=== PATIENT | female | born 1985 | race Two or more races ===

== ENCOUNTER 2017-04-27 08:00 | Outpatient (CLI) | payer OTHER ==
[2017-04-29 11:16] LABS: TEST RESULT REPORT (())
== END 2017-04-27 08:01 | disposition home or self-care (01) ==
LOC: LAB.WCP 08:00
PROVIDERS: ATTEND Physician Assistant Medical
DX: K12.1 Other forms of stomatitis (principal)
CPT/HCPCS: 81599; 87255

== ENCOUNTER 2017-09-04 08:00 | Outpatient (CLI) | payer OTHER | END 2017-09-04 08:01 | disposition home or self-care (01) | LOC: LAB.R 08:00 | PROVIDERS: ATTEND Physician Assistant Medical | DX: J02.9 Acute pharyngitis, unspecified (principal) | CPT/HCPCS: 87070 ==

== ENCOUNTER 2018-01-28 11:29 | Outpatient (CLI) | payer OTHER ==
[2018-01-28 19:18] LABS: BASOPHILS % (AUTO) 0.3 %; EOSINOPHILS # (AUTO) 0.2 10^3/uL (0.0-0.7); EOSINOPHILS % (AUTO) 2.7 %; HGB - HEMOGLOBIN 12.4 g/dL (12.0-16.0); LYMPHOCYTES % (AUTO) 37.4 %; MEAN CORPUSCULAR HEMOGLOBIN 27.5 pg (27.0-31.0); MEAN CORPUSCULAR HGB CONC 32.6 g/dL (32.0-36.0); MEAN CORPUSCULAR VOLUME 84.2 fL (81.0-99.0); MEAN PLATELET VOLUME 9.4 fL (7.9-10.8); MONOCYTES # (AUTO) 0.6 10^3/uL (0.0-1.0); MONOCYTES % (AUTO) 7.6 %; NEUTROPHILS # (AUTO) 4.2 10^3/uL (1.5-6.6); PLT - PLATELET COUNT 260 10^3/uL (130-450); RED BLOOD COUNT 4.53 10^6/uL (4.20-5.40); RED CELL DISTRIBUTION WIDTH 14.9 % (12.0-15.0)
[2018-01-28 19:38] LABS: HB2 TOTAL 13.4 g/dL; HEMOGLOBIN A1C 0.49 g/dL; HEMOGLOBIN A1C % 5.5 % (4.6-6.2)
[2018-01-28 19:43] LABS: ALBUMIN 3.8 g/dL (3.2-5.5); ALKALINE PHOSPHATASE 70 IU/L (42-121); ALT ALANINE AMINOTRANSFERASE 35 IU/L (10-60); AST ASPARTATE AMINOTRANSFERASE 25 IU/L (10-42); BILIRUBIN,TOTAL 0.4 mg/dL (0.2-1.0); BUN - BLOOD UREA NITROGEN 7 mg/dL (6-20); CALCIUM 8.9 mg/dL (8.5-10.3); CARBON DIOXIDE - CO2 25 mmol/L (21-32); CHLORIDE 103 mmol/L (101-111); CHOL/HDL RATIO 3.6 (<4.4); CHOLESTEROL 169 mg/dL; CREATININE 0.6 mg/dL (0.4-1.0); GFR - MDRD 116 (>89); GLUCOSE 81 mg/dL (70-100); HDL CHOLESTEROL 47 mg/dL; LDL CHOLESTEROL,CALCULATED 109 mg/dL; LDL/HDL RATIO 2.3 (<4.4); SODIUM 135 mmol/L (135-145); TOTAL PROTEIN 7.7 g/dL (6.7-8.2); VLDL CHOLESTEROL 13 mg/dL
== END 2018-01-28 11:30 ==
LOC: LAB.WCP 11:29
PROVIDERS: ATTEND Physician Assistant Medical
DX: Z00.00 Encounter for general adult medical examination without abnormal findings (principal); O24.419 Gestational diabetes mellitus in pregnancy, unspecified control
CPT/HCPCS: 36415; 80053; 80061; 83036; 83721; 84443; 85025

== ENCOUNTER 2019-03-17 | Outpatient (CLI) | payer OTHER | END 2019-03-17 23:59 | disposition home or self-care (01) | DX: R53.83 Other fatigue (principal) ==

== ENCOUNTER 2019-05-26 10:15 | Outpatient (CLI) | payer OTHER ==
[2019-05-26 11:28] VITALS: BP 96/60
--- NOTE | 2019-05-26 11:28 | SLEEP CARE CONSULTATION ---
Information from patient questionnaire entered by Tigist Sanders. I have reviewed and concur with the information entered by Tigist Sanders. This document represents the service I personally performed and the decisions made by me, Sara Menendez RN, MSN, [employer]. History of Present Illness Reason for Visit: New patient Chief Complaint: reports: Excessive daytime sleepiness, Fatigue Duration of Symptoms: 1 year Usual bedtime: 9 pm Time it takes to fall asleep: 30 minutes Snores at night: Yes Observed to quit breathing while asleep: No Sleeps alone due to snoring: No Number of times waking at night: 4 Reasons for waking at night: reports: Snoring, Bathroom, Other (switching positions) Toss, Turn, or Twitch while sleeping: Yes Recalls having dreams: Yes Usually gets out of bed at: 6:30 am Feels refreshed in the morning: No Morning headache: No Sleepy or fatigued during the day: Yes Ever fallen asleep while driving: Yes (no accidents - she pulls over when eye lids heavy and rests when notes ) Takes day naps: Yes (try to on weekends for about 3-4 hours and sometimes feels more rested. 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 Patient is and lives in [place]. Have you smoked in the past 12 months: No Alcohol use: Yes Alcohol amount and frequency: 1 glass every couple of months Caffeine use: Yes Caffeine amount and frequency: 3-5 days a week - 1 12 ounce soda Family History Family history of sleep disordered breathing: No Allergies and Home Medications Known drug allergies: No Home medication list reviewed: Yes Allergy and home medication list: Lexapro 20mg daily Stacy daily Vitamin D 2000 iu daily. Review of Systems Weight gain over past 5 years: 20 Psychiatric: reports: anxiety, depression ( feels it is controlled. No thoughts of hurting self or others. ) Ear/Nose/Throat: reports: nasal congestion (with seasonal allergies), sinus problems, wisdom teeth removed. denies: nose bleeds, dry mouth/throat, hoarseness, injury to nose, tonsillectomy Musculoskeletal: reports: back pain (intermittent with resolution of symptoms with physical therapy) Immunologic: reports: other (adhesive (ex - from band-aid)) Physical Exam Blood Pressure: 96/60 Heart Rate: 70 O2 Saturation: 97 Height: 5 ft 5.25 in Weight: 226 lb 9.6 oz Body Mass Index: 37.4 BMI Classification: Obesity Class 2 Neck circumference: 15.5 HEENT: No craniofacial malformation Nostrils: partially obstructed Turbinates: swollen Septum: midline Mouth and throat: narrow oropharynx Soft palate: long Hard palate: Torus palatinus Uvula: normal Uvula visualization: 25% Mallampati Class III Tongue: enlarged in size with teeth verdugo on lateral edges Tonsils: 1+ Chin and jaw: normal size and position Neck: normal w/o lymphadenopathy or thyromegaly Heart: regular rate and rhythm Lungs: clear bilaterally Abdomen: soft, non-tender Extremities: no edema or clubbing Impression and Plan 1. Suspected Obstructive Sleep Apnea-Hypopnea Syndrome, as suggested by a history of loud and irregular snoring, frequent awakening during the night, unrefreshed sleep, fatigue and excessive daytime sleepiness. She also grinds her teeth in her sleep and does not wear a guard. Narrow oropharynx and obesity are common predisposing factors for obstructive sleep apnea-hypopnea syndrome. I recommend proceeding to polysomnography to confirm the diagnosis and to assess severity. If the patient has significant sleep disordered breathing, a manual CPAP titration study will also be performed to find the optimal treatment pressure. I informed the patient of what the sleep studies involve and after some discussion, obtained agreement to proceed. The pathophysiology of obstructive sleep apnea-hypopnea syndrome was discussed with the patient and health risks of cardiovascular and cerebrovascular disease if not treated. [facility] brochure for obstructive sleep apnea-hypopnea syndrome given and reviewed. Risks of drowsy driving discussed in detail and patient advised to avoid long distance driving and to drum puller at the first sign of drowsiness. Patient agreed to plan. [facility] drowsy driving brochure given. * Schedule polysomnography +- manual CPAP titration study * Avoid long distance driving or driving when feeling sleepy. * Avoid alcohol, sedative and muscle relaxant around bedtime. * Attempt to lose weight. * Review instructions provided by trained office staff on how to prepare for the sleep study. * Return for follow-up after sleep study completed. I spent 100% of this 35 minute visit face to face with the patient with greater than 50% of this was spent time counseling the patient and coordination of care.
== END 2019-05-26 10:16 | disposition home or self-care (01) ==
LOC: SC 10:15
PROVIDERS: ATTEND Nurse Practitioner Family
DX: G47.10 Hypersomnia, unspecified (principal); R06.83 Snoring; G47.8 Other sleep disorders; R53.83 Other fatigue; E66.9 Obesity, unspecified; Z68.37 Body mass index [BMI] 37.0-37.9, adult
CPT/HCPCS: 99203; 99212

== ENCOUNTER 2019-06-09 19:07 | Outpatient (CLI) | payer OTHER | END 2019-06-09 19:08 | disposition home or self-care (01) | LOC: SC 19:07 | PROVIDERS: ATTEND Internal Medicine Pulmonary Disease | DX: G47.10 Hypersomnia, unspecified (principal); G47.8 Other sleep disorders; E66.9 Obesity, unspecified; Z68.37 Body mass index [BMI] 37.0-37.9, adult | CPT/HCPCS: 95810 ==

== ENCOUNTER 2019-07-08 16:10 | Outpatient (CLI) | payer OTHER ==
[2019-07-08 17:55] VITALS: BP 112/74
--- NOTE | 2019-07-08 17:55 | SLEEP CARE CONSULTATION ---
Information from patient questionnaire entered by Tigist Sanders. I have reviewed and concur with the information entered by Tigist Sanders. This document represents the service I personally performed and the decisions made by me, Sara Menendez RN, MSN, [employer]. History of Present Illness Initial [place] Sleepiness Scale score: 18 Current [place] Sleepiness Scale score: 17 Additional HPI information: KATELYN PICKENS returns for follow up of the recently performed polysomnography and informed of the polysomnography findings. I explained the pathophysiology behind obstructive sleep apnea. Patient does not have sleep apnea and was advised how weight gain could increase the risk of developing sleep apnea in the future. I strongly encouraged the patient to lose weight. Patient has loud snoring. Snoring can be reduced by weight loss. Weight loss is best achieved with diet consult. Patient instructed to contact PCP for referral. Snoring can also be treated with an oral appliance from a dentist. Advised to check insurance coverage. In addition, an ENT evaluation can be do to see if other treatment is indicated. Patient counseled not drink alcohol less than 4 hours before bedtime as it can increase snoring and apnea. Patient was cautioned about risks of drowsy driving until sleepiness symptoms resolve. Sleep Study - Polysomnography Polysomnography findings: The quality of the study is good. The patient had slightly reduced sleep efficiency due to a prolonged awakening in the first half of the night.. The sleep architecture was normal. Respiratory monitoring showed no significant sleep disordered breathing (AHI = 3.0) or hypoxia (donis oxygen saturation of 88% and only 0.1% to the total sleep time was spent with oxygen saturation below 90%). The few respiratory events occurred mainly during REM sleep (supine AHI = 2.2; non-supine = 3.53). Snore was loud in intensity. There was no significant periodic leg movement of sleep. Cardiac rhythm was normal sinus rhythm without significant arrhythmia. No abnormal behavior (parasomnia) observed during the night. Allergies and Home Medications Known drug allergies: No Home medication list reviewed: Yes (no changes) Review of Systems Review of systems same as previous: Yes Physical Exam Blood Pressure: 112/74 Cuff size: long Heart Rate: 91 O2 Saturation: 97 Height: 5 ft 5.25 in Weight: 229 lb 12.8 oz Body Mass Index: 37.9 BMI Classification: Obesity Class 2 Impression and Plan 1. Snoring but no significant sleep disordered breathing. Patient advised that often weight loss will reduce snoring as well as apnea risk. Weight loss is best achieved with a dinkey engine firer consultation to obtain optimal weight loss goals. We looked at the BMI chart and where her BMI is currently. In addition to red ucing snoirng and apnea risk, weight loss will also reduce overall health risks as her BMI is currently 37, class 2 obesity. Weight loss maintenance is best achieved starting with small weight loss goals and tracking of food intake to change dietary habits. There are some Apps available for this. I also stressed importance of staying away from sugary drinks, refined foods and portion control of whole foods. An oral appliance can also be used for snoring. This would require a dental consultation. Patient is advised to check if insurance will cover. Patient cautioned not to use other online appliances as can cause bite issues. A list of accredited dentists in area and one local dentist who makes oral appliances offered and declined. She was informed she should use an oral appliance for bruxism but has not obtained. . An ENT consult can also be helpful to determine if any other treatment is an option. Patient would like to concentrate on weight loss. 2. Fatigue and excessive daytime sleepiness, unknown etiology. Patient states has been present for about a year. No changes noted in lifestyle or weight. She has a regular sleep schedule. Thus she was advised to follow up with PCP for further evaluation such as her depression treatment and other medical conditions. Patient agreed with plan. * Attempt to lose weight * Follow up with PCP for referral to diet consultatio and further evaluation of sleepiness symptoms. * Avoid alcohol consumption near bedtime * The patient is cautioned about driving until sleepiness is completely resolved. * Return as needed. I spent 100% of this 17 minute visit face to face with the patient with greater than 50% of this was spent time counseling the patient and coordination of care.
== END 2019-07-08 16:11 | disposition home or self-care (01) ==
LOC: SC 16:10
PROVIDERS: ATTEND Nurse Practitioner Family
DX: R06.83 Snoring (principal); G47.10 Hypersomnia, unspecified; R53.83 Other fatigue; E66.9 Obesity, unspecified; Z68.37 Body mass index [BMI] 37.0-37.9, adult
CPT/HCPCS: 99212; 99213

== ENCOUNTER 2020-03-12 15:29 | Inpatient (IN) | payer OTHER ==
--- NOTE | 2020-03-12 15:35 | ED Physician Documentation ---
PD HPI ABD PAIN - Stated complaint Stated Complaint: APPENDICITIS - History obtained from History obtained from: Patient - Additional information Additional information: She has had 5 days of abdominal pain, initially periumbilical then radiating to the right lower quadrant associated with nausea. She was seen in outpatient setting and first had lab work which was notable for a white count of 15,000 and subsequently an ultrasound which was nondiagnostic. Today she had an CT consistent with appendicitis.She also had a test done in the outpatient setting which was negative. Review of Systems Ten Systems: 10 systems reviewed and negative Constitutional: reports: Reviewed and negative Throat: reports: Reviewed and negative Cardiac: reports: Reviewed and negative Respiratory: reports: Reviewed and negative PD PAST MEDICAL HISTORY - Past Medical History Past Medical History: No - Past Surgical History Past Surgical History: No - Present Medications Home Medications: Ambulatory Orders Medication Instructions Recorded Confirmed Escitalopram Oxalate [Lexapro] 20 mg PO DAILY 03/12/20 03/12/20 Fexofenadine HCl [Stacy Allergy] 60 mg PO DAILY 03/12/20 03/12/20 - Allergies Allergies/Adverse Reactions: Allergies Allergy/AdvReac Type Severity Reaction Status Date / Time No Known Drug Allergies Allergy Verified 03/12/20 15:39 - Living Situation Living Situation: reports: With spouse/s.o. - Social History Does the pt smoke?: No - Family History Family history: reports: Non contributory PD ED PE NORMAL - Vitals Vital signs reviewed: Yes - General General: Alert and oriented X 3, No acute distress - HEENT HEENT: PERRL, EOMI - Neck Neck: Supple, no meningeal sign, No bony TTP - Cardiac Cardiac: RRR, No murmur - Respiratory Respiratory: No respiratory distress, Clear bilaterally - Abdomen Abdomen: Normal bowel sounds, Soft, Other (Modest right lower quadrant tenderness) - Back Back: No CVA TTP, No spinal TTP - Derm Derm: Normal color, Warm and dry - Extremities Extremities: No edema, No calf tenderness / cord - Neuro Neuro: Alert and oriented X 3, Normal speech Results - Vitals Vitals: Vital Signs - 24 hr 03/12/20 15:35 Heart Rate 92 Respiratory 16 Rate Blood Pressure 141/98 H O2 Saturation 100 Oxygen O2 Source Room air PD MEDICAL DECISION MAKING - ED course ED course: 34-year-old woman presents with known appendicitis, the surgeon, Dr. Canada will come in and see her and requested antibiotics in the interim. Departure - Departure Disposition: ED Transfer to [facility] Clinical Impression: Appendicitis Qualifiers: Appendicitis type: acute appendicitis Acute appendicitis type: with localized peritonitis Appendicitis gangrene presence: without gangrene Appendicitis perforation presence: without perforation Appendicitis abscess presence: without abscess Qualified Code(s): K35.30 - Acute appendicitis with localized peritonitis, without perforation or gangrene Condition: Stable Discharge Date/Time: 03/12/20 16:44
[2020-03-12] MEDS ORDERED: CEFOTETAN DISODIUM 2 GM in SODIUM CHLORIDE 0.9% MINIBAG 100 ML IV STA (15:38)
[2020-03-12] MEDS ORDERED: LACTATED RINGERS 1,000 ML IV STA (15:38)
--- NOTE | 2020-03-12 16:06 | HISTORY & PHYSICAL EXAMINATION ---
Chief Complaint - Chief Complaint Chief Complaint: right lower quadrant abdominal pain x 4 days Abdominal Pain HPI - Admitted From Admitted from: ED - History Obtained From History obtained from: Patient Exam limitations: No limitations - History of Present Illness Severity at the worst: Moderate Pain Quality: Aching Timing: Gradual onset Duration: Days: (4) Worsened by: Eating Associated symptoms: Nausea Social & Family Hx - Social History Does the pt smoke?: No Meds/Allgy - Home Medications Home Medications: Ambulatory Orders Medication Instructions Recorded Confirmed Escitalopram Oxalate [Lexapro] 20 mg PO DAILY 03/12/20 03/12/20 Fexofenadine HCl [Stacy Allergy] 60 mg PO DAILY 03/12/20 03/12/20 - Allergies Allergies/Adverse Reactions: Allergies Allergy/AdvReac Type Severity Reaction Status Date / Time No Known Drug Allergies Allergy Verified 03/12/20 15:39 Review of Systems - Constitutional Constitutional: reports: Poor appetite (10 pt ros as above and below otherwise unremarkable) Exam - Vital Signs Vital Signs: Vital Signs x48h Pulse Resp BP Pulse Ox 03/12/20 15:35 92 16 141/98 H 100 - Physical Exam General Appearance: positive: No acute distress, Alert Eyes Bilateral: positive: Normal inspection, PERRL, EOMI ENT: positive: No signs of dehydration Neck: positive: No JVD, Trachea midline Cardiovascular: positive: Regular rate & rhythm Abdomen: positive: Other (2 cm umbilical hernia. non distended. mild tenderness present) Results - Diagnostic Imaging Results Diagnostic Imaging Results: positive: Read independently, Other (ct appendicitis) Impression/Plan - Problem List Problem List: Appendicitis, Plan lap appendectomy and umbilical hernia repair without mesh. possible drain placement. parq held and consent obtained
[2020-03-12] MEDS ORDERED: fentaNYL 250 MCG/5 ML VIAL IVP PRN (16:31)
[2020-03-12] MEDS ORDERED: SUCCINYLCHOLINE 200 MG/10 ML VIAL IVP PRN (16:32)
[2020-03-12] MEDS ORDERED: MIDAZOLAM 2 MG/2 ML VIAL IVP PRN (16:32)
[2020-03-12] MEDS ORDERED: PROPOFOL 500 MG/50 ML VIAL IVP PRN (16:33)
[2020-03-12] MEDS ORDERED: ROCURONIUM 50 MG/5 ML VIAL IVP PRN (16:34)
[2020-03-12] MEDS ORDERED: NEOSTIGMINE 1 MG/1 ML 10 ML MDV IVP PRN (16:35)
[2020-03-12] MEDS ORDERED: GLYCOPYRROLATE 1 MG/5 ML VIAL IVP PRN (16:36)
[2020-03-12] MEDS ORDERED: SUGAMMADEX 200 MG/2 ML VIAL IVP PRN (16:37)
[2020-03-12] MEDS ORDERED: BUPIVACAINE 0.25% PF 30 ML VIAL ONE (16:39)
--- NOTE | 2020-03-12 17:11 | ANESTHESIA ---
Pre-Anesthesia VS, & Labs - Diagnosis appendecitis - Procedure lap appy Vital Signs: Temp Pulse Resp BP Pulse Ox 92 16 141/98 H 100 03/12/20 15:35 03/12/20 15:35 03/12/20 15:35 03/12/20 15:35 Height 5 ft 5 in Weight (kg) 104.326 kg Body Mass Index 38.2 - NPO >8 hours - Is Patient ?: No - Lab Results Lab results reviewed: Yes Home Medications and Allergies Home Medications: Ambulatory Orders Escitalopram Oxalate [Lexapro] 20 mg PO DAILY 03/12/20 Fexofenadine HCl [Stacy Allergy] 60 mg PO DAILY 03/12/20 Active Medications Lactated Ringer's (Lr) 1,000 mls @ 150 mls/hr IV .Q6H40M STA Stop: 03/12/20 22:17 Last Admin: 03/12/20 16:43 Dose: 150 mls/hr Documented by: Escitalopram Oxalate [Lexapro] 20 mg PO DAILY 03/12/20 Fexofenadine HCl [Stacy Allergy] 60 mg PO DAILY 03/12/20 Allergies/Adverse Reactions: Allergies Allergy/AdvReac Type Severity Reaction Status Date / Time No Known Drug Allergies Allergy Verified 03/12/20 15:39 Anes History & Medical History - Anesthetic History Anesthesia Complications: reports: No previous complications - Medical History Cardiovascular: reports: None Pulmonary: reports: None Gastrointestinal: reports: None Urinary: reports: None Neuro: reports: None Musculoskeletal: reports: None Endocrine/Autoimmune: reports: None Blood Disorders: reports: None Skin: reports: None Smoking Status: Never smoker Exam General: Alert, Oriented x3, Cooperative, No acute distress Mouth Openin Fingerbreadth Neck Mobility: Normal Mallampati classification: II Respiratory: Lungs clear, Normal breath sounds, No respiratory distress, No accessory muscle use Cardiovascular: Regular rate, Normal S1, Normal S2, No murmurs Plan Anesthesia Type: General, Transverse Abdominis Plane (TAP) Block Regional Block: Per Surgeon's request for Post Op pain control Consent for Procedure(s) Verified and Reviewed: Yes Code Status: Attempt Resuscitation ASA classification: 2-Mild systemic disease Is this case an emergency?: Yes
[2020-03-12] MEDS ORDERED: BUPIVACAINE 0.25% PF 30 ML VIAL SUBQ ONE (19:25)
[2020-03-12] MEDS ORDERED: LACTATED RINGERS 1,000 ML IV ONE ×3 (19:26→20:12)
[2020-03-12] MEDS ORDERED: ACETAMINOPHEN 325 MG TABLET PO PRN (19:46)
[2020-03-12] MEDS ORDERED: METOCLOPRAMIDE 10 MG/2 ML VIAL IVP PRN (19:46)
[2020-03-12] MEDS ORDERED: PROCHLORPERAZINE 5 MG TABLET PO PRN (19:51)
[2020-03-12] MEDS: D5.45NS W/20 MEQ KCL 1,000 ML IV SCH (21:12)
[2020-03-12] MEDS: FAMOTIDINE 20 MG TABLET PO SCH (21:26)
[2020-03-12] MEDS: metroNIDAZOLE 500 MG/100 ML 500 MG/100 ML BAG IV SCH (21:56)
[2020-03-13] MEDS: SODIUM CHLORIDE FLUSH 0.9% 10 ML SYRINGE IVP SCH ×3 (01:05→17:36)
[2020-03-13] MEDS: oxyCODONE 5 MG TABLET PO PRN (03:41)
[2020-03-13] MEDS: metroNIDAZOLE 500 MG/100 ML 500 MG/100 ML BAG IV SCH ×3 (05:28→22:13)
[2020-03-13] MEDS: SODIUM CHLORIDE FLUSH 0.9% 10 ML SYRINGE IVP PRN ×3 (05:32→19:45)
[2020-03-13] MEDS ORDERED: ceFAZolin 1 GM VIAL ONE (08:29)
[2020-03-13] MEDS: FAMOTIDINE 20 MG TABLET PO SCH ×2 (08:37→22:12)
[2020-03-13] MEDS: HYDROmorphone 0.5 MG/0.5 ML SYRINGE IVP PRN ×2 (08:37→11:34)
[2020-03-13] MEDS: ONDANSETRON 4 MG/2 ML VIAL IVP PRN ×2 (08:37→17:43)
[2020-03-13] MEDS: D5.45NS W/20 MEQ KCL 1,000 ML IV SCH ×3 (08:37→17:43)
[2020-03-13] MEDS: ESCITALOPRAM 10 MG TABLET PO SCH (08:37)
[2020-03-13] MEDS ORDERED: ceFAZolin 2 GM in SODIUM CHLORIDE 0.9% 100ML 100 ML IV SCH ×3 (09:00)
[2020-03-13] MEDS ORDERED: ACETAMINOPHEN 1,000 MG/100 ML 100 ML IV PRN (12:28)
[2020-03-13] MEDS: KETOROLAC 30 MG/ML VIAL IVP PRN ×2 (13:46→19:44)
--- NOTE | 2020-03-13 18:56 | PROVIDER PROGRESS NOTE ---
Subjective - General Admit Date: 03/12/20 Procedure Date: 03/12/20 Post Op Days: 1 Procedure Performed: Laparoscopic appendectomy - Review of Systems Wound/Incisions: positive: Healing well Drain Type: Closed suction Drain Output Description: serosanguinous General: positive: Fatigue, Appetite. negative: Chills, Night sweats HEENT: positive: No symptoms Pulmonary: positive: No symptoms. negative: Shortness of breath, Cough Cardiovascular: negative: Chest pain Gastrointestinal: positive: No symptoms, Nausea (Only when up and out of bed), Abdominal pain, Flatus. negative: Vomiting Genitourinary: positive: No symptoms Musculoskeletal: positive: No symptoms - Other Other Information/Narrative: Feeling a little better today. Denies nausea when resting in bed and says pain is well controlled. Would like to try something less strong for pain during the day. Using Dilaudid as much for sleep as for pain. Objective - Patient Data Reviewed Vital Signs: Yes Vital Signs: Vital Signs x48h Temp Pulse Resp BP Pulse Ox 03/13/20 16:00 36.4 C L 72 14 101/61 97 03/13/20 12:00 37.0 C 78 14 119/75 95 Weight: Weight 03/11/20 03/12/20 03/13/20 23:59 23:59 23:59 Weight (kg) 104.3 kg Intake & Output: Intake and Output Totals x24h 03/11/20 03/12/20 03/13/20 23:59 23:59 23:59 Intake Total 583 3787.917 Output Total 30 1520 Balance 553 2267.917 - Current Medications Current Medications: Current Medications Generic Name Dose Route Start Last Admin Trade Name Freq PRN Reason Stop Dose Admin Acetaminophen 325 mg 03/12/20 19:46 03/13/20 17:43 Tylenol PO 325 mg Q4HR PRN Administration PAIN Escitalopram Oxalate 20 mg 03/13/20 09:00 03/13/20 08:37 Lexapro PO 20 mg DAILY SHANTELLE Administration Famotidine 20 mg 03/12/20 21:00 03/13/20 08:37 Pepcid PO 20 mg BID SHANTELLE Administration Hydromorphone HCl 0.5 mg 03/12/20 20:18 03/13/20 11:34 Dilaudid Inj Syringe IVP 0.5 mg Q2H PRN Administration PAIN Potassium Chloride/Dextrose/Sod Cl 1,000 mls @ 125 mls/hr 03/12/20 20:00 03/13/20 17:43 D5.45ns W/20 Meq Kcl IV 125 mls/hr .Q8H SHANTELLE Administration Metronidazole 500 mg in 100 mls @ 100 mls/hr 03/12/20 22:00 03/13/20 14:50 Flagyl 500 Mg/100 Ml IV Infused Q8HR SHANTELLE Infusion Ketorolac Tromethamine 30 mg 03/13/20 12:28 03/13/20 13:46 Toradol Inj (30mg) IVP 03/18/20 12:27 30 mg Q6HR PRN Administration PAIN Ondansetron HCl 4 mg 03/12/20 19:46 03/13/20 17:43 Zofran Inj IVP 4 mg Q6H PRN Administration Nausea / Vomiting Oxycodone HCl 5 mg 03/12/20 19:46 03/13/20 03:41 Roxicodone PO 5 mg Q4HR PRN Administration PAIN Sodium Chloride 10 ml 03/13/20 01:00 03/13/20 17:36 Normal Saline Flush 0.9% IVP Not Given 0100,0900,1700 SHANTELLE Sodium Chloride 10 ml 03/12/20 19:46 03/13/20 17:43 Normal Saline Flush 0.9% IVP 10 ml PRN PRN Administration NEEDED PER PROVIDER ORDERS - Physical Exam Wound/Incisions: positive: Healing well, Dressing dry and intact General Appearance: positive: No acute distress Eyes Bilateral: positive: Normal inspection ENT: positive: ENT inspection nml, Pharynx nml Neck: positive: Nml inspection Respiratory: positive: Chest non-tender, No respiratory distress, Breath sounds nml Cardiovascular: positive: Regular rate & rhythm Abdomen: positive: Nml bowel sounds, No distention, Tenderness (Appropriately tender to palpation). negative: Guarding, Rebound Skin: positive: Color nml Neurologic/Psychiatric: positive: Oriented x3 ABX Reporting Has patient been on IV antibiotics over the past 48 hours?: Yes Impression/Plan - Problem List Problem List: Acute appendicitis Improving 1. Add IV toradol and tylenol 2. Minimize use of narcotics. 3. Advance diet a tolerated. 4. Change to oral pain meds in the AM if nausea is controlled today.
[2020-03-14] MEDS: D5.45NS W/20 MEQ KCL 1,000 ML IV SCH (00:51)
[2020-03-14] MEDS: SODIUM CHLORIDE FLUSH 0.9% 10 ML SYRINGE IVP SCH ×2 (00:53→09:56)
--- NOTE | 2020-03-14 04:42 | OPERATIVE REPORT ---
DATE OF SERVICE: 03/12/2020 Physician: Ayan Canada MD PREOPERATIVE DIAGNOSES 1. Appendicitis. 2. Umbilical hernia. POSTOPERATIVE DIAGNOSES 1. Appendicitis. 2. Umbilical hernia. PROCEDURES PERFORMED 1. Laparoscopic appendectomy. 2. Extra degree of difficulty secondary to very significant adhesions and retrocecal position of the appendix. 3. Umbilical hernia repair without mesh. SURGEON: Ayan Canada MD INSPECTOR SHEET METAL PARTS: None. ANESTHESIA 1. General endotracheal anesthesia. 2. Local anesthesia with Marcaine. COMPLICATIONS: None. SPECIMEN: Appendix. ESTIMATED BLOOD LOSS: Less than 25 mL DRAINS: A 15 flat JOHN. COMPLICATIONS: None. FINDINGS: The patient had very significant and very dense retrocecal adhesions involving the appendix. This made the surgery quite difficult and tedious. The appendix had to be taken from the cecum down towards the tip. INDICATIONS FOR PROCEDURE: The patient is a 34-year-old with history of umbilical hernia since . She has had 4 days of abdominal pain. She has an elevated white count. Ultrasound did not show her appendix . Her symptoms progressed, and a CT scan was performed, showing a retrocecal appendix with significant inflammation. She presents for surgery. Risks discussed, alternatives discussed. All questions answered and consent obtained. DETAILS OF PROCEDURE: The patient was properly identified, brought to the operating room, and placed in supine position. She voided prior to surgery. General endotracheal anesthesia was induced. Sequential compression devices were placed. She was prepped and draped in a sterile fashion, given preoperative antibiotics. Local anesthetic was given to incision areas. An infraumbilical linear incision was made. Dissection proceeded down to the umbilical hernia sac. The umbilical skin was sharply excised away from the hernia sac. Hernia sac was sharply mobilized away from the surrounding subcutaneous tissue and then opened. A Escobar trocar was placed and secured with 2 interrupted 0 Vicryl sutures. CO2 was insufflated to a pressure of 15. A 30-degree scope was used. Under direct vision, a 5 mm trocar was placed suprapubic, and a 5 mm trocar was placed in the right upper quadrant. The base of the appendix was identified between the terminal ileum and the cecum. Her appendix was plump, enlarged, and with very significant what appeared to be chronic adhesions to the underside of the cecum. First, the base of the appendix was mobilized right at the cecum and then divided with an intestinal Endo-ROBERTO staple load. With great care, great patience and a tedious dissection, the appendix was slowly removed from the retrocecal position, largely with blunt dissection and careful use of the [place] dissector. The mesoappendix was taken with several Endo-ROBERTO vascular loads, with care not to injure other structures. The tip of the appendix was carefully peeled off from the retroperitoneum, with care not to injure the ureter. The appendix was then placed in an Endo Catch bag and brought out through the umbilical hernia trocar site. The abdomen was thoroughly irrigated. There were no apparent complications. A 10 flat Dane-Valdes drain was placed and brought out through the suprapubic trocar site. At times, a 5 mm scope was used to assist with the surgery. The drain was secured with a 3-0 nylon suture. The trocars were removed under direct vision. The umbilical hernia was closed with a total of 6 interrupted 0 Vicryl sutures. Subcutaneous tissue was irrigated. The umbilical skin was tacked back down to fascia with interrupted 3-0 Vicryl suture. Subcutaneous tissue was closed with interrupted 3-0 Vicryl suture. Skin was loosely reapproximated with buried interrupted 4-0 Monocryl. Dressings were applied. She tolerated the procedure well. TD: 03/13/2020 18:46 NATHALY
[2020-03-14] MEDS: metroNIDAZOLE 500 MG/100 ML 500 MG/100 ML BAG IV SCH (05:46)
[2020-03-14 08:32] VITALS: BP 129/74
--- NOTE | 2020-03-14 08:53 | Discharge Plan ---
Discharge Plan Problem Reviewed?: Yes Disposition: Home, Self Care Condition: Good Prescriptions: oxyCODONE [Roxicodone] 5 mg PO Q4HR PRN #7 tablet PRN Reason: Pain Ondansetron Odt [Zofran Odt] 4 mg TL Q6H PRN #10 tablet PRN Reason: Nausea / Vomiting Diet: Regular Activity Restrictions: 10 lb lifing limit Shower Restrictions: No Driving Restrictions: Yes (not while using narcotics) No Smoking: If you smoke, Please STOP! Call for help. Follow-up with: Vanda Muir PA-C [Primary Care Provider] - Ayan Canada MD [Provider Admit Priv/Credential] -
--- NOTE | 2020-03-14 08:57 | DISCHARGE SUMMARY ---
"Discharge Summary Admit Date: 03/12/20 Discharge Date: 03/14/20 Discharging Provider: Louis Code Status: Attempt Resuscitation Condition at Discharge: Good Discharge Disposition: 01 Home, Self Care - DIAGNOSES Admission Diagnoses: Acute Appendicitis Discharge Diagnoses with Status of Each Condition: Improved - HPI History of Present Illness: Bessy presented to the ED with a history of 4 days of right lower quadrant pain. She was noted to have appendicitis on CT and Dr. Canada was consulted for management. - CONSULTS | PROCEDURES Consultations: None Procedures: Laparoscopic appendectomy - HOSPITAL COURSE Hospital Course: The patient was taken to the OR for an uneventful but difficult appendectomy. A drain was left in the right lower quadrant. She was transferred to the med/surg unit for convalescence and supportive care. Today she is ambulating without assistance and tolerating a regular diet. The drain has been removed and her pain has been controlled with minimal narcotic. She is discharged to her home in the care of her family. She will follow up with Dr. Canada in 2 weeks. - ALLERGIES Allergies/Adverse Reactions: Allergies Allergy/AdvReac Type Severity Reaction Status Date / Time No Known Drug Allergies Allergy Verified 03/12/20 15:39 - MEDICATIONS Home Medications: Ambulatory Orders Medication Instructions Recorded Confirmed Escitalopram Oxalate [Lexapro] 20 mg PO DAILY 03/12/20 03/12/20 Fexofenadine HCl [Stacy Allergy] 180 mg PO DAILY 03/12/20 03/13/20 Acetaminophen [Tylenol] 325 mg PO Q4HR PRN tablet 03/14/20 Escitalopram [Lexapro] 20 mg PO DAILY tablet 03/14/20 Ondansetron Odt [Zofran Odt] 4 mg TL Q6H PRN #10 tablet 03/14/20 oxyCODONE [Roxicodone] 5 mg PO Q4HR PRN #7 tablet 03/14/20 - PHYSICAL EXAM AT DISCHARGE General Appearance: positive: No acute distress, Alert Eyes Bilateral: positive: Normal inspection, PERRL, EOMI ENT: positive: ENT inspection nml, Pharynx nml, No signs of dehydration Neck: positive: Nml inspection, No JVD Respiratory: positive: Chest non-tender, No respiratory distress, Breath sounds nml Cardiovascular: positive: Regular rate & rhythm, No murmur Peripheral Pulses: positive: 1+ Abdomen: positive: Other (Appropriately tender. Active bowel sounds. Wounds are clean and dry) Skin: positive: Color nml Extremities: positive: Non-tender, No pedal edema Neurologic/Psychiatric: positive: Oriented x3 - QUALITY (Female Hip Fx Only) Was patient sent home on osteoporosis medication?: No - FOLLOW UP Follow Up: Dr. Canada at [facility] in 2 weeks - TIME SPENT Time Spent in Discharge (Minutes): 15"
[2020-03-14] MEDS: FAMOTIDINE 20 MG TABLET PO SCH (09:12)
[2020-03-14] MEDS: ESCITALOPRAM 10 MG TABLET PO SCH (09:12)
[2020-03-14] MEDS: ONDANSETRON 4 MG/2 ML VIAL IVP PRN (09:12)
[2020-03-14] MEDS ORDERED: ROCURONIUM 50 MG/5 ML VIAL IVP ONE (11:59)
[2020-03-14] MEDS ORDERED: PROPOFOL 200 MG/20 ML VIAL IVP ONE (11:59)
[2020-03-14] MEDS ORDERED: fentaNYL 100 MCG/2 ML VIAL IVP ONE (11:59)
[2020-03-14] MEDS ORDERED: ONDANSETRON 4 MG/2 ML VIAL IVP ONE (11:59)
[2020-03-14] MEDS ORDERED: DEXAMETHASONE 4 MG/ML VIAL IVP ONE (11:59)
[2020-03-14] MEDS: oxyCODONE 5 MG TABLET PO PRN (12:03)
== END 2020-03-14 12:00 | disposition home or self-care (01) | DRG 337 ==
LOC: ED 15:29 → SDS 15:50 → MS2 19:46
PROVIDERS: ADMIT Surgery; ATTEND Surgery
PROC: 0DTJ4ZZ Resection of Appendix, Percutaneous Endoscopic Approach (ICD-10-PCS; principal; 2020-03-12 16:00)
PROC: 0DNJ4ZZ Release Appendix, Percutaneous Endoscopic Approach (ICD-10-PCS; 2020-03-12 16:00)
DX: K35.30 Acute appendicitis with localized peritonitis, without perforation or gangrene (principal); K42.9 Umbilical hernia without obstruction or gangrene; E66.9 Obesity, unspecified; Z68.38 Body mass index [BMI] 38.0-38.9, adult; K66.0 Peritoneal adhesions (postprocedural) (postinfection)
CPT/HCPCS: 74177; 99284; 99285; A9270; J1170; J7120; Q9967

== ENCOUNTER 2020-10-01 08:00 | Outpatient (CLI) | payer OTHER ==
[2020-10-01 18:08] LABS: BASOPHILS # (AUTO) 0.1 10^3/uL (0.0-0.1); BASOPHILS % (AUTO) 0.6 %; EOSINOPHILS # (AUTO) 0.1 10^3/uL (0.0-0.7); EOSINOPHILS % (AUTO) 1.6 %; HGB - HEMOGLOBIN 14.5 g/dL (12.0-16.0); LYMPHOCYTES # (AUTO) 2.9 10^3/uL (1.5-3.5); LYMPHOCYTES % (AUTO) 35.2 %; MEAN CORPUSCULAR HEMOGLOBIN 28.8 pg (27.0-31.0); MEAN CORPUSCULAR HGB CONC 32.6 g/dL (32.0-36.0); MEAN CORPUSCULAR VOLUME 88.5 fL (81.0-99.0); MONOCYTES # (AUTO) 0.4 10^3/uL (0.0-1.0); MONOCYTES % (AUTO) 5.3 %; NEUTROPHILS # (AUTO) 4.7 10^3/uL (1.5-6.6); NEUTROPHILS % (AUTO) 56.8 %; PLT - PLATELET COUNT 296 10^3/uL (130-450); RED BLOOD COUNT 5.03 10^6/uL (4.20-5.40); RED CELL DISTRIBUTION WIDTH 13.2 % (12.0-15.0); WHITE BLOOD COUNT 8.2 x10^3/uL (4.8-10.8)
[2020-10-01 18:26] LABS: ALBUMIN 4.3 g/dL (3.2-5.5); ALKALINE PHOSPHATASE 99 IU/L (42-121); ALT ALANINE AMINOTRANSFERASE 162 IU/L (10-60); AST ASPARTATE AMINOTRANSFERASE 140 IU/L (10-42); BILIRUBIN,TOTAL 1.2 mg/dL (0.2-1.0); BUN - BLOOD UREA NITROGEN 9 mg/dL (6-20); CALCIUM 9.8 mg/dL (8.5-10.3); CARBON DIOXIDE - CO2 28 mmol/L (21-32); CHLORIDE 99 mmol/L (101-111); CHOL/HDL RATIO 4.8 (<4.4); CHOLESTEROL 237 mg/dL; CREATININE 0.6 mg/dL (0.4-1.0); GLUCOSE 301 mg/dL (70-100); HDL CHOLESTEROL 49 mg/dL; LDL CHOLESTEROL,CALCULATED 150 mg/dL; LDL/HDL RATIO 3.1 (<4.4); TOTAL PROTEIN 8.5 g/dL (6.7-8.2); VLDL CHOLESTEROL 38 mg/dL
== END 2020-10-01 23:59 | disposition home or self-care (01) ==
LOC: LAB.WCP 08:00
PROVIDERS: ATTEND Physician Assistant Medical
DX: Z00.00 Encounter for general adult medical examination without abnormal findings (principal)
CPT/HCPCS: 36415; 80053; 80061; 83721; 84443; 85025

== ENCOUNTER 2021-01-29 10:21 | Outpatient (CLI) | payer OTHER ==
[2021-01-29 11:08] LABS: CREATININE,URINE 124.8 mg/dL
[2021-01-29 11:31] LABS: ALBUMIN 3.9 g/dL (3.2-5.5); ALBUMIN/GLOBULIN RATIO 1.2 (1.0-2.2); ALKALINE PHOSPHATASE 67 IU/L (42-121); ALT ALANINE AMINOTRANSFERASE 16 IU/L (10-60); AST ASPARTATE AMINOTRANSFERASE 16 IU/L (10-42); BILIRUBIN,TOTAL 1.1 mg/dL (0.2-1.0); BUN - BLOOD UREA NITROGEN 11 mg/dL (6-20); CALCIUM 8.8 mg/dL (8.5-10.3); CARBON DIOXIDE - CO2 27 mmol/L (21-32); CHLORIDE 103 mmol/L (101-111); CHOL/HDL RATIO 3.7 (<4.4); CHOLESTEROL 157 mg/dL; CREATININE 0.6 mg/dL (0.4-1.0); GFR - MDRD 114 (>89); GLUCOSE 119 mg/dL (70-100); HDL CHOLESTEROL 42 mg/dL; LDL CHOLESTEROL,CALCULATED 102 mg/dL; LDL/HDL RATIO 2.4 (<4.4); POTASSIUM 3.8 mmol/L (3.5-5.0); SODIUM 137 mmol/L (135-145); TOTAL PROTEIN 7.1 g/dL (6.7-8.2); TRIGLYCERIDES 65 mg/dL; VLDL CHOLESTEROL 13 mg/dL
[2021-01-29 13:02] LABS: ESTIMATED AVERAGE GLUCOSE 120 mg/dL (70-100); HEMOGLOBIN A1c% 5.8 % (4.27-6.07)
== END 2021-01-29 10:22 | disposition home or self-care (01) ==
LOC: LAB 10:21
PROVIDERS: ATTEND Physician Assistant Medical
DX: E11.9 Type 2 diabetes mellitus without complications (principal)
CPT/HCPCS: 36415; 80053; 80061; 82043; 82570; 83036; 83721

== ENCOUNTER 2021-04-15 11:45 | Outpatient (CLI) | payer OTHER ==
[2021-04-15 12:25] LABS: ALBUMIN 4.4 g/dL (3.2-5.5); ALBUMIN/GLOBULIN RATIO 1.3 (1.0-2.2); ALKALINE PHOSPHATASE 75 IU/L (42-121); ALT ALANINE AMINOTRANSFERASE 19 IU/L (10-60); AST ASPARTATE AMINOTRANSFERASE 19 IU/L (10-42); BILIRUBIN,TOTAL 1.2 mg/dL (0.2-1.0); BUN - BLOOD UREA NITROGEN 10 mg/dL (6-20); CALCIUM 9.2 mg/dL (8.5-10.3); CARBON DIOXIDE - CO2 28 mmol/L (21-32); CHLORIDE 100 mmol/L (101-111); CHOL/HDL RATIO 3.9 (<4.4); CHOLESTEROL 186 mg/dL; CREATININE 0.7 mg/dL (0.4-1.0); GFR - MDRD 95 (>89); GLUCOSE 96 mg/dL (70-100); HDL CHOLESTEROL 48 mg/dL; LDL CHOLESTEROL,CALCULATED 121 mg/dL; LDL/HDL RATIO 2.5 (<4.4); POTASSIUM 4.3 mmol/L (3.5-5.0); SODIUM 137 mmol/L (135-145); TOTAL PROTEIN 7.9 g/dL (6.7-8.2); TRIGLYCERIDES 85 mg/dL; VLDL CHOLESTEROL 17 mg/dL
[2021-04-15 13:38] LABS: ESTIMATED AVERAGE GLUCOSE 117 mg/dL (70-100); HEMOGLOBIN A1c% 5.7 % (4.27-6.07)
[2021-04-15 16:36] LABS: CREATININE,URINE 164.3 mg/dL; MICROALBUM/CREATININE RATIO,UR 16.4 ug/mg (<30.0); MICROALBUMIN,URINE 2.7 mg/dL (0-300.0)
== END 2021-04-15 11:46 | disposition home or self-care (01) ==
LOC: LAB 11:45
PROVIDERS: ATTEND Physician Assistant Medical
DX: E11.9 Type 2 diabetes mellitus without complications (principal)
CPT/HCPCS: 36415; 80053; 80061; 82043; 82570; 83036; 83721